=== PATIENT | male | born 1965 | race Caucasian/White ===

== ENCOUNTER 2024-06-16 04:57 | Emergency (ER) | payer OTHER ==
[~2024-06-16] VITALS: Ht 180.3 cm; Wt 90.0 kg
[2024-06-16 05:12] VITALS: O2SAT 99
[2024-06-16 06:39] LABS: HEMATOCRIT. 41.4 % (42.0-52.0); MEAN CORPUSCULAR HEMOGLOBIN 30.4 pg (28.0-32.0); MEAN CORPUSCULAR HGB CONC 33.7 g/dL (31.0-37.0); MEAN CORPUSCULAR VOLUME 90.2 fL (80.0-94.0); MEAN PLATELET VOLUME 8.3 fl (7.4-10.4); PLATELET 201 x1000/uL (130-400); RED BLOOD CELL COUNT 4.59 mill/uL (4.7-6.1); RED CELL DISTRIBUTION WIDTH 13.5 % (11.6-14.6); WHITE BLOOD COUNT 6.8 x1000/uL (4.5-11.0)
[2024-06-16 06:40] LABS: DIFFERENTIAL COMMENT 1
[2024-06-16 06:44] LABS: CHLORIDE 101 mEq/L (98-107); POTASSIUM 3.5 mEq/L (3.5-5.1); SODIUM 136 mEq/L (136-145)
[2024-06-16 06:45] LABS: CALCIUM 8.6 mg/dL (8.7-10.4); CARBON DIOXIDE 28 mEq/L (21-32)
[2024-06-16 06:50] LABS: CREATININE 1.2 mg/dL (0.6-1.3); GLUCOSE 149 mg/dL (70-105); UREA NITROGEN BLOOD 12 mg/dL (9-23)
[2024-06-16 06:52] LABS: ALANINE AMINOTRANSFERASE 53 IU/L (10-49); ALBUMIN 3.9 g/dL (3.2-4.8); ASPARTATE AMINOTRANSFERASE 41 IU/L (<34); BILIRUBIN TOTAL 0.6 mg/dL (0.1-1.0); PROTEIN TOTAL 7.3 g/dL (6.0-8.3)
[2024-06-16] MEDS: SODIUM CHLORIDE 0.9% 1,000 ML IV ONE (06:59)
[2024-06-16] MEDS: METOCLOPRAMIDE HCL 10MG/2ML VIAL IV ONE (06:59)
[2024-06-16] MEDS: KETOROLAC 30MG/ML VIAL IV STA (06:59)
[2024-06-16 08:27] LABS: CLARITY URINE CLOUDY (CLEAR); COLOR URINE YELLOW (YELLOW); GLUCOSE URINE NEGATIVE (NEGATIVE); KETONES URINE NEGATIVE (NEGATIVE); LEUKOCYTE ESTERASE URINE 1+ (NEGATIVE); NITRITE URINE NEGATIVE (NEGATIVE); OCCULT BLOOD URINE 3+ (NEGATIVE); PROTEIN URINE 2+ (NEGATIVE)
[2024-06-16 08:42] LABS: BACTERIA URINE 1+; RBC URINE TNTC /hpf (0-2); SQUAMOUS EPITHELIAL CELL URINE NONE SEEN /lpf (RARE/1+); YEAST URINE NONE SEEN
[2024-06-16 09:09] LABS: PLATELET ESTIMATE NORMAL
[2024-06-16] MEDS: CEFTRIAXONE 1GM/50ML 50 ML IV ONE (10:18)
[2024-06-16] MEDS: ACETAMINOPHEN 1000MG/100ML 100 ML IV ONE (12:00)
[2024-06-16 13:00] VITALS: BP 116/71; PULSE 80; RESP 14; TEMP 37.2; O2SAT 99
== END 2024-06-16 13:28 | disposition short-term general hospital (02) ==
LOC: ER 04:57 → CANBEDREQ 10:50 → ER 13:28
DX: N39.0 Urinary tract infection, site not specified (principal)
CPT/HCPCS: 99285; 96365; 96375; 96367; 80053; 81003; 85025; 36415; J1885; J0696; J2765; J7030; J0131